=== PATIENT | female | born 1980 | race Caucasian/White ===

== ENCOUNTER 2021-01-04 14:39 | Emergency (ER) | payer OTHER ==
[2021-01-04 18:26] LABS: BASOPHIL 0.4 % (0-2); EOSINOPHIL 1.3 % (0-5); HGB 14.3 g/dl (12.5-16.0); LYMPHOCYTE 26.4 % (15-48); MCH 31.7 pg (25.0-31.0); MCHC 33.3 g/dL (32.0-36.0); MCV 95.3 fL (78.0-100.0); MONOCYTE 6.1 % (0-12); MPV 9.8 fL (6.0-9.5); NEUTROPHIL 65.5 % (41-80); NRBC 0; PLT 290 K/uL (150-400); RBC 4.51 M/uL (4.20-5.40); RDW 12.6 % (11.5-14.0); WBC 9.5 K/uL (4.0-10.5)
[2021-01-04 18:31] LABS: BILIRUBIN NEGATIVE (NEGATIVE); BLOOD NEGATIVE Ery/uL (NEGATIVE); CLARITY CLEAR (CLEAR); COLOR YELLOW (YELLOW); GLUCOSE (U) NORMAL (NORMAL); LEUKOCYTES NEGATIVE Leu/uL (NEGATIVE); NITRITE NEGATIVE (NEGATIVE); PROTEIN NEGATIVE (NEGATIVE); SPECIFIC GRAVITY <=1.005 (1.001-1.030); UROBILINOGEN 0.2 mg/dL (0.2-1.0); pH 6.5 (5.0-9.0)
[2021-01-04 18:49] LABS: ALBUMIN 4.1 g/dL (3.4-5.0); BILIRUBIN - TOTAL 0.8 mg/dL (0.2-1.0); BUN/CREAT RATIO (CALC) 9.9 RATIO; CREATININE 0.71 mg/dL (0.51-0.95); GLOBULIN (CALCULATION) 3.6 g/dL; POTASSIUM 3.9 mmol/L (3.5-5.1); TOTAL PROTEIN 7.7 g/dL (6.4-8.2)
[2021-01-04] MEDS ORDERED: ZOFRAN4 M1 PO (20:20)
[2021-01-04] MEDS ORDERED: NAPROXEN500 MG PO (20:20)
== END 2021-01-04 20:52 | disposition home or self-care (01) ==
LOC: FER 14:39
PROVIDERS: Nurse Practitioner Family
DX: N83.202 Unspecified ovarian cyst, left side (principal); N83.201 Unspecified ovarian cyst, right side; N70.11 Chronic salpingitis; Z98.890 Other specified postprocedural states
CPT/HCPCS: 36415; 80053; 81003; 82150; 83690; 85025; J1885; J7030; Q9967